=== PATIENT | male | born 1935 | race Caucasian/White ===

== ENCOUNTER 2019-05-05 07:39 | Day surgery (SDC) | payer MEDICARE ==
[~2019-05-05] VITALS: Ht 170.2 cm; Wt 65.8 kg
[2019-05-05 08:00] VITALS: BP 149/80
[2019-05-05] MEDS ORDERED: FOLI0.4T2 PO (08:36)
[2019-05-05] MEDS ORDERED: GABA-530 PO (08:36)
[2019-05-05] MEDS ORDERED: METH2.5T PO (08:37)
[2019-05-05] MEDS ORDERED: METF500T PO (08:37)
[2019-05-05] MEDS ORDERED: MONT10TA26 PO (08:38)
[2019-05-05] MEDS ORDERED: BUDE10.2 INH (08:38)
[2019-05-05] MEDS ORDERED: TEST200V10 IM (08:39)
[2019-05-05] MEDS ORDERED: LIRA0.6P2 SUBCUT (08:40)
[2019-05-05] MEDS ORDERED: LEVO150T PO (08:42)
[2019-05-05 09:25] VITALS: BP 158/92
[2019-05-05 09:35] VITALS: BP 147/88
== END 2019-05-05 09:40 | disposition home or self-care (01) ==
LOC: SSTAY O 07:39
PROVIDERS: ATTEND Radiology Vascular & Interventional Radiology
DX: J90 Pleural effusion, not elsewhere classified (principal); N40.0 Benign prostatic hyperplasia without lower urinary tract symptoms; F40.240 Claustrophobia; I10 Essential (primary) hypertension; K21.9 Gastro-esophageal reflux disease without esophagitis; E03.9 Hypothyroidism, unspecified; E78.00 Pure hypercholesterolemia, unspecified; E78.1 Pure hyperglyceridemia; Z85.038 Personal history of other malignant neoplasm of large intestine; Z85.028 Personal history of other malignant neoplasm of stomach; Z98.890 Other specified postprocedural states; Z90.49 Acquired absence of other specified parts of digestive tract; Z98.49 Cataract extraction status, unspecified eye; Z79.899 Other long term (current) drug therapy
CPT/HCPCS: 76604

== ENCOUNTER 2019-06-01 08:01 | Day surgery (SDC) | payer MEDICARE ==
[2019-06-01] VITALS (7 sets, daily range): BP systolic 135–170; BP diastolic 71–99
[~2019-06-01] VITALS: Ht 167.6 cm; Wt 65.6 kg
[~2019-06-01 08:01] MED LIST: BUDE10.2 INH; FOLI0.4T2 PO; GABA-530 PO; LEVO150T PO; LIRA0.6P2 SUBCUT; METF500T PO; METH2.5T PO; MONT10TA26 PO; TEST200V10 IM
[2019-06-01] MEDS ORDERED: VITA-134 PO (08:33)
[2019-06-01] MEDS ORDERED: NIAC1CAP PO (08:33)
== END 2019-06-01 11:00 | disposition home or self-care (01) ==
LOC: SSTAY O 08:01
PROVIDERS: ATTEND Radiology Diagnostic Radiology
DX: J90 Pleural effusion, not elsewhere classified (principal); I10 Essential (primary) hypertension; K21.9 Gastro-esophageal reflux disease without esophagitis; E03.9 Hypothyroidism, unspecified; E78.00 Pure hypercholesterolemia, unspecified; F40.240 Claustrophobia; Z85.9 Personal history of malignant neoplasm, unspecified; Z90.49 Acquired absence of other specified parts of digestive tract; Z98.890 Other specified postprocedural states; Z98.49 Cataract extraction status, unspecified eye; Z85.828 Personal history of other malignant neoplasm of skin; Z79.899 Other long term (current) drug therapy
CPT/HCPCS: 32555; 71045; C1729